=== PATIENT | male | born 1960 | race Caucasian/White ===

== ENCOUNTER 2021-02-18 11:50 | Emergency (ER) | payer MEDICARE, OTHER ==
[~2021-02-18 11:50] MED LIST: BACTRIM DS TAB1 EACH PO; BACTROBAN CREAM15 GM TOP; BUSPAR 10MG10 MG PO; CARBIDOPA-LEVO1 EAC6 PO; DEPAKOTE 250 M250 MG PO; DEXAMETHASONE1 MG PO; FLAGYL500 MG PO; FLOMAX 0.4 MG0.4 MG PO; GLUCOPHAGE 500500 MG PO; KEFLEX500 MG PO; LAMOTRIGINE150 MG PO; LASIX 40 MG TAB40 MG PO; LEVAQUIN500 MG PO; LIPITOR TAB 2020 MG PO; LORCET HD 10-31 EACH PO; PRAMIPEXOLE D0.25 MG PO; PREVACID30 MG PO; RIOMET500 MG/5 M PO; ROBITUSSIN DM473 ML PO; SINEMET 25/100 T1 EA PO; VENTOLIN HFA 66.7 GM INH; XARELTO15 MG PO
[2021-02-18 12:50] LABS: HEMOGLOBIN 14.3 gm/dl (14.0-17.5); RED BLOOD COUNT 4.99 M/UL (4.20-5.50); WHITE BLOOD COUNT 7.7 K/UL (4.5-11.0)
[2021-02-18 13:31] LABS: BUN/CREATININE RATIO 17 (0-10)
== END 2021-02-18 18:30 | disposition short-term general hospital (02) ==
LOC: ER1 11:50
PROVIDERS: Nurse Practitioner
DX: R29.810 Facial weakness (principal); R47.81 Slurred speech; R41.0 Disorientation, unspecified; G20 Parkinson's disease; E11.9 Type 2 diabetes mellitus without complications; Z79.899 Other long term (current) drug therapy; Z87.891 Personal history of nicotine dependence; Z86.718 Personal history of other venous thrombosis and embolism
CPT/HCPCS: 70450; 80053; 84484; 85025; 85610; 85730; 93005; 99285

== ENCOUNTER 2021-05-25 15:10 | Observation (INO) | payer MEDICARE, OTHER ==
[~2021-05-25] VITALS: Ht 175.3 cm; Wt 77.1 kg
[2021-05-25 16:22] LABS: HEMOGLOBIN 15.4 gm/dl (14.0-17.5); RED BLOOD COUNT 5.11 M/UL (4.20-5.50); WHITE BLOOD COUNT 5.9 K/UL (4.5-11.0)
[2021-05-25 16:33] LABS: BUN/CREATININE RATIO 12 (0-10)
[2021-05-25] MEDS ORDERED: ASPIRIN CHEWABL81 MG PO (18:12)
[2021-05-25] MEDS ORDERED: VITAMIN D21250 MCG PO (18:13)
[2021-05-25] MEDS ORDERED: LOTRISONE CREAM15 GM TP (18:14)
[2021-05-25] MEDS ORDERED: CARBIDOPA-LEVO1 EAC6 PO ×2 (18:15)
[2021-05-25] MEDS ORDERED: LASIX20 MG PO (18:16)
[2021-05-25] MEDS ORDERED: GLUCOPHAGE 500500 MG PO (18:17)
[2021-05-25] MEDS ORDERED: DEPAKOTE ER250 MG PO (18:18)
[2021-05-25] MEDS ORDERED: MIRAPEX0.25 MG PO (18:19)
[2021-05-26 03:59] LABS: HEMOGLOBIN 11.9 gm/dl (14.0-17.5); RED BLOOD COUNT 4.14 M/UL (4.20-5.50); WHITE BLOOD COUNT 4.3 K/UL (4.5-11.0)
[2021-05-26 04:04] LABS: BUN/CREATININE RATIO 14 (0-10)
[2021-05-27 05:10] LABS: HEMOGLOBIN 11.5 gm/dl (14.0-17.5); RED BLOOD COUNT 3.93 M/UL (4.20-5.50); WHITE BLOOD COUNT 3.8 K/UL (4.5-11.0)
[2021-05-27 05:26] LABS: BUN/CREATININE RATIO 10 (0-10)
[2021-05-27] MEDS ORDERED: CARBIDOPA-LEVO1 EA14 PO ×2 (09:25)
== END 2021-05-27 14:09 | disposition home health service (06) ==
LOC: ER1 15:10 → CDU 17:38 → MED SURG 4 17:38
PROVIDERS: Physician Assistant Medical; Preventive Medicine Occupational Medicine; ADMIT Internal Medicine
DX: U07.1 COVID-19 (principal); J96.21 Acute and chronic respiratory failure with hypoxia; E87.2 Acidosis; E87.0 Hyperosmolality and hypernatremia; E87.6 Hypokalemia; G20 Parkinson's disease; R13.10 Dysphagia, unspecified; R53.81 Other malaise; E78.5 Hyperlipidemia, unspecified; E11.9 Type 2 diabetes mellitus without complications; I69.351 Hemiplegia and hemiparesis following cerebral infarction affecting right dominant side; N40.0 Benign prostatic hyperplasia without lower urinary tract symptoms; R63.4 Abnormal weight loss; Z68.25 Body mass index [BMI] 25.0-25.9, adult; Z86.718 Personal history of other venous thrombosis and embolism; Z86.16 Personal history of COVID-19; Z85.841 Personal history of malignant neoplasm of brain; Z92.3 Personal history of irradiation; Z99.81 Dependence on supplemental oxygen; Z79.01 Long term (current) use of anticoagulants; Z79.84 Long term (current) use of oral hypoglycemic drugs; Z79.82 Long term (current) use of aspirin; Z79.899 Other long term (current) drug therapy; Z87.09 Personal history of other diseases of the respiratory system; Z87.19 Personal history of other diseases of the digestive system
CPT/HCPCS: 36415; 36600; 70450; 71045; 80048; 80053; 82140; 82550; 82553; 82803; 82962; 83605; 83690; 83735; 83874; 83880; 84295; 84484; 85025; 85027; 85652; 86140; 92526; 92610; 93005; 96374; 96376; 97163; 97166; 99285; G0378; J1335; J7030; U0002

== ENCOUNTER 2021-07-14 08:57 | Inpatient (IN) | payer MEDICARE ==
[~2021-07-14] VITALS: Ht 175.3 cm; Wt 72.0 kg
[~2021-07-14 08:57] MED LIST changes: +CARBIDOPA-LEVO1 EA14 PO; +LASIX20 MG PO; +LOTRISONE CREAM15 GM TP; +VITAMIN D21250 MCG PO
[2021-07-14 10:17] LABS: HEMOGLOBIN 10.7 gm/dl (14.0-17.5); RED BLOOD COUNT 3.62 M/UL (4.20-5.50); WHITE BLOOD COUNT 6.2 K/UL (4.5-11.0)
[2021-07-14 10:45] LABS: BUN/CREATININE RATIO 22 (0-10)
[2021-07-14] MEDS ORDERED: CARBIDOPA-LEVO1 EAC6 PO ×2 (15:25→15:42)
[2021-07-14] MEDS ORDERED: HYDROCODON-ACE1 EAC6 PO (15:34)
[2021-07-14] MEDS ORDERED: ASPIRIN EC81 MG PO (18:12)
[2021-07-14] MEDS ORDERED: DEPAKOTE125 MG PO (18:18)
[2021-07-14] MEDS ORDERED: MIRAPEX0.25 MG PO (18:19)
[2021-07-14 22:38] LABS: BUN/CREATININE RATIO 30 (0-10)
[2021-07-15 02:03] LABS: HEMOGLOBIN 9.6 gm/dl (14.0-17.5)
[2021-07-15 02:04] LABS: RED BLOOD COUNT 3.22 M/UL (4.20-5.50); WHITE BLOOD COUNT 7.8 K/UL (4.5-11.0)
[2021-07-15 02:26] LABS: BUN/CREATININE RATIO 29 (0-10)
[2021-07-15 06:52] LABS: BUN/CREATININE RATIO 30 (0-10)
[2021-07-15 10:53] LABS: BUN/CREATININE RATIO 31 (0-10)
[2021-07-15 16:57] LABS: BUN/CREATININE RATIO 34 (0-10)
[2021-07-15 18:37] LABS: BUN/CREATININE RATIO 30 (0-10)
[2021-07-15 22:32] LABS: BUN/CREATININE RATIO 33 (0-10)
[2021-07-16 05:24] LABS: HEMOGLOBIN 8.3 gm/dl (14.0-17.5); WHITE BLOOD COUNT 9.3 K/UL (4.5-11.0)
[2021-07-16 05:44] LABS: RED BLOOD COUNT 2.77 M/UL (4.20-5.50)
[2021-07-16 08:44] LABS: BUN/CREATININE RATIO 33 (0-10)
[2021-07-17 06:03] LABS: HEMOGLOBIN 7.6 gm/dl (14.0-17.5); RED BLOOD COUNT 2.56 M/UL (4.20-5.50)
[2021-07-17 06:15] LABS: WHITE BLOOD COUNT 5.6 K/UL (4.5-11.0)
[2021-07-17 06:31] LABS: BUN/CREATININE RATIO 20 (0-10)
[2021-07-18 04:08] LABS: HEMOGLOBIN 7.1 gm/dl (14.0-17.5); RED BLOOD COUNT 2.41 M/UL (4.20-5.50)
[2021-07-18 04:09] LABS: WHITE BLOOD COUNT 2.9 K/UL (4.5-11.0)
[2021-07-18 04:37] LABS: BUN/CREATININE RATIO 14 (0-10)
[2021-07-18 16:23] LABS: WHITE BLOOD COUNT 2.8 K/UL (4.5-11.0)
[2021-07-18 16:32] LABS: RED BLOOD COUNT 2.12 M/UL (4.20-5.50)
[2021-07-18 16:33] LABS: HEMOGLOBIN 6.3 gm/dl (14.0-17.5)
[2021-07-18 22:48] LABS: HEMOGLOBIN 7.8 gm/dl (14.0-17.5); WHITE BLOOD COUNT 3.2 K/UL (4.5-11.0)
[2021-07-18 22:49] LABS: RED BLOOD COUNT 2.69 M/UL (4.20-5.50)
[2021-07-19 05:18] LABS: HEMOGLOBIN 7.9 gm/dl (14.0-17.5); RED BLOOD COUNT 2.67 M/UL (4.20-5.50); WHITE BLOOD COUNT 3.6 K/UL (4.5-11.0)
[2021-07-19 05:45] LABS: BUN/CREATININE RATIO 14 (0-10)
[2021-07-19 17:08] LABS: HEMATOCRIT 18.3 % (37.5-51.0)
[2021-07-20 05:39] LABS: HEMOGLOBIN 7.6 gm/dl (14.0-17.5); RED BLOOD COUNT 2.61 M/UL (4.20-5.50)
[2021-07-20 05:40] LABS: WHITE BLOOD COUNT 5.3 K/UL (4.5-11.0)
[2021-07-20 06:01] LABS: BUN/CREATININE RATIO 21 (0-10)
== END 2021-07-24 20:44 | disposition expired | DRG 870 ==
LOC: ER1 08:57 → CCU 23:09 → ER1 07-15 00:38 → CCU 07-15 00:39 → CDU 07-15 00:39 → M/S 07-15 00:39 → CCU 07-15 00:40 → M/S 07-21 06:20
PROVIDERS: Internal Medicine; Internal Medicine Hematology & Oncology; Internal Medicine Pulmonary Disease; Registered Nurse; ADMIT Internal Medicine
PROC: 0BH17EZ Insertion of Endotracheal Airway into Trachea, Via Natural or Artificial Opening (ICD-10-PCS; principal; 2021-07-14)
PROC: 5A1955Z Respiratory Ventilation, Greater than 96 Consecutive Hours (ICD-10-PCS; 2021-07-14)
PROC: 0DH63UZ Insertion of Feeding Device into Stomach, Percutaneous Approach (ICD-10-PCS; 2021-07-16)
PROC: 30233N1 Transfusion of Nonautologous Red Blood Cells into Peripheral Vein, Percutaneous Approach (ICD-10-PCS; 2021-07-18)
DX: A41.9 Sepsis, unspecified organism (principal); L89.613 Pressure ulcer of right heel, stage 3; G93.41 Metabolic encephalopathy; Z51.5 Encounter for palliative care; Z20.822 Contact with and (suspected) exposure to COVID-19; Z66 Do not resuscitate; J69.0 Pneumonitis due to inhalation of food and vomit; J96.21 Acute and chronic respiratory failure with hypoxia; R65.21 Severe sepsis with septic shock; J15.0 Pneumonia due to Klebsiella pneumoniae; E87.0 Hyperosmolality and hypernatremia; D61.818 Other pancytopenia; I69.351 Hemiplegia and hemiparesis following cerebral infarction affecting right dominant side; N17.9 Acute kidney failure, unspecified; E87.2 Acidosis; E44.0 Moderate protein-calorie malnutrition; B17.9 Acute viral hepatitis, unspecified; F17.210 Nicotine dependence, cigarettes, uncomplicated; R13.19 Other dysphagia; N40.0 Benign prostatic hyperplasia without lower urinary tract symptoms; E78.5 Hyperlipidemia, unspecified; L89.322 Pressure ulcer of left buttock, stage 2; L89.152 Pressure ulcer of sacral region, stage 2; L89.510 Pressure ulcer of right ankle, unstageable; L89.621 Pressure ulcer of left heel, stage 1; E88.09 Other disorders of plasma-protein metabolism, not elsewhere classified; E11.9 Type 2 diabetes mellitus without complications; E87.8 Other disorders of electrolyte and fluid balance, not elsewhere classified; E86.0 Dehydration; G20 Parkinson's disease; Z79.4 Long term (current) use of insulin; Z86.16 Personal history of COVID-19; Z87.01 Personal history of pneumonia (recurrent); Z86.718 Personal history of other venous thrombosis and embolism; Z79.01 Long term (current) use of anticoagulants; Z98.42 Cataract extraction status, left eye; Z98.41 Cataract extraction status, right eye; Z83.3 Family history of diabetes mellitus; Z68.20 Body mass index [BMI] 20.0-20.9, adult
CPT/HCPCS: 31500; 36415; 36556; 36600; 43752; 51702; 70450; 71045; 71250; 76705; 80048; 80053; 81001; 82248; 82533; 82550; 82553; 82607; 82728; 82747; 82803; 82962; 83010; 83540; 83550; 83605; 83615; 83735; 83874; 83921; 84100; 84132; 84484; 85025; 85027; 85045; 85610; 85730; 86140; 86850; 86880; 86900; 86901; 86920; 87040; 87070; 87077; 87081; 87086; 87186; 87205; 93005; 94002; 94003; 94760; 96374; 96375; 96376; 99285; A6212; C1751; J0330; J1205; J1335; J1720; J2060; J2185; J2270; J2543; J2704; J3370; J3475; J3480; J7030; J7040; J7042; J7050; J7070; P9016; P9047; U0002